=== PATIENT | female | born 1970 | race Two or more races ===

== ENCOUNTER → 2024-09-10 | Outpatient (CLI) | payer MEDICAID, SELFPAY ==
--- NOTE | 2024-09-10 12:24 | XR_ITS ---
Examination: Wrist, left 3 views Technique: Wrist AP, oblique, lateral 3 views Date and time of exam: September 10, 2024 1346 hours INDICATIONS: Patient fell one year ago with injury to the wrist, wrist pain FINDINGS: Severe osteopenia No acute fracture No dislocation IMPRESSION: No acute fracture
== END | disposition home or self-care (01) ==
PROVIDERS: PCP Physician Assistant; Referring Provider Physician Assistant; Visit Provider Physician Assistant
DX: S69.92XA Unspecified injury of left wrist, hand and finger(s), initial encounter (principal); W19.XXXA Unspecified fall, initial encounter
CPT/HCPCS: 73110